=== PATIENT | female | born 1965 | race Two or more races ===

== ENCOUNTER 2016-07-14 02:18 | Emergency (ER) | payer MEDICAID ==
[~2016-07-14] VITALS: Ht 152.4 cm; Wt 61.2 kg
[~2016-07-14 02:18] MED LIST: FIORICET1 EA ORAL
[2016-07-14] MEDS ORDERED: AMOXICILLI250 MG/5 M ORAL (02:27)
[2016-07-14] MEDS ORDERED: PERIDEX 0.12% O15 ML ORO (02:28)
[2016-07-14] MEDS ORDERED: Ketorolac 60mg Inj IM ONE (03:00)
--- NOTE | 2016-07-14 03:23 | Emergency Room Report ---
History of Present Illness General Chief Complaint: Pain Source: Patient Present Illness HPI Patient presents with complaints of left shoulder pain Reports recent major oral surgery And she was concerned that the surgery could potentially have led to her discomfort Denies any fall or trauma Denies any chest pain or shortness of breath Patient has very a specific discomfort localized to the lateral aspect of the left shoulder Pain with any attempts at movement of the shoulder and appears to be very mechanical denies any neck pain Denies any abdominal pain denies any swelling of the arm Please note that the conversation was performed using pen and paper as the patient is not able to verbalize secondary to the recent oral surgery Allergies: Coded Allergies: No Known Allergies (Unverified , 03/17/14) Patient History Past Medical History: see triage record Pertinent Family History: none Now: No Reviewed Nursing Documentation: PMH: Agreed, PSxH: Agreed Review of Systems All Other Systems: negative except mentioned in HPI Physical Exam Vital Signs Date Time Temp Pulse Resp B/P Pulse Ox O2 Delivery O2 Flow Rate FiO2 07/14/16 02:23 89 14 159/85 99 Room Air Sp02 EP Interpretation: reviewed, normal General Appearance: no apparent distress Head: normocephalic, atraumatic Eyes: bilateral eye EOMI, bilateral eye PERRL ENT: other - Patient has teeth clenched, has apparent recent oral surgery Neck: full range of motion, supple Respiratory: lungs clear Cardiovascular #1: regular rate, rhythm, no edema Gastrointestinal: non tender, soft Musculoskeletal: other - She has left shoulder against the left body, slowly moves the upper arm away however with discomfort, sensory is intact, no signs of swelling or edema Neurologic: alert, oriented x3, responsive Skin: normal color Lymphatic: no adenopathy Medical Decision Making Diagnostic Impression: Primary Impression: Shoulder pain, acute ER Course Multiple differentials considered Including but not limited to, radiculopathy, referred pain, cold fracture Patient's x-ray is negative, there is evidence of calcified tendinitis Patient appears to have outpatient consistent pain medication And will continue to followup with that specialty Otherwise neurovascularly intact in a stable for close outpatient followup Other X-Ray Diagnostic Results Other X-Ray Diagnostic Results : EP Interpretation: Yes Findings: no fractures, no dislocation, no soft tissue swelling, other - calcified tendon Number of Views: 3 - left shoulder Last Vital Signs Date Time Temp Pulse Resp B/P Pulse Ox O2 Delivery O2 Flow Rate FiO2 07/14/16 02:23 89 14 159/85 99 Room Air Status: improved Disposition: HOME, SELF-CARE Condition: Improved Additional Instructions: Patient is provided with the discharge instructions notified to follow up with primary doctor in the next 2-3 days otherwise return to the er with any worsening symptoms. Please note that this report is being documented using DRAGON technology. This can lead to erroneous entry secondary to incorrect interpretation by the dictating instrument. LUDIN BALDERRAMA D.O. Jul 14, 2016 03:23
[2016-07-14 03:28] VITALS: BP 113/73
[2016-07-14 04:15] VITALS: BP 113/73
--- NOTE | 2016-07-14 17:11 | Diagnostic Imaging Report ---
Indication: PAIN Technique: 3 views of the left shoulder Comparison: none Findings: No acute fractures. No dislocations. There is calcific tendinosis of the rotator cuff. Impression:No acute process This agrees with the preliminary interpretation provided by the emergency room physician This agrees with the preliminary interpretation provided overnight by [facility].
== END 2016-07-14 04:15 | disposition home or self-care (01) ==
LOC: EMR 03:10
DX: M25.512 Pain in left shoulder (principal)
CPT/HCPCS: 81025; 96372; 99283

== ENCOUNTER 2016-08-22 10:16 | Emergency (ER) | payer MEDICAID ==
[~2016-08-22] VITALS: Ht 152.4 cm; Wt 59.0 kg
[~2016-08-22 10:16] MED LIST changes: +AMOXICILLI250 MG/5 M ORAL; +PERIDEX 0.12% O15 ML ORO
[2016-08-22 10:25] VITALS: BP 115/75
[2016-08-22] MEDS ORDERED: Dicyclomine HCl 10mg/5ml oral soln ORAL ONE (10:30)
[2016-08-22 11:30] VITALS: BP 122/69
[2016-08-22] MEDS ORDERED: metroNIDAZOLE 500mg tab ORAL ONE (11:45)
[2016-08-22] MEDS ORDERED: Ciprofloxacin 500mg tab ORAL ONE (11:45)
[2016-08-22] MEDS ORDERED: CIPROFLOXACIN500 M2 ORAL (12:15)
[2016-08-22] MEDS ORDERED: ZOFRAN4 M3 ORAL (12:15)
[2016-08-22] MEDS ORDERED: BENTYL10 MG ORAL (12:15)
[2016-08-22] MEDS ORDERED: METRONIDAZOLE500 MG ORAL (12:15)
[2016-08-22 12:25] VITALS: BP 122/69
--- NOTE | 2016-08-24 06:55 | Emergency Room Report ---
History of Present Illness General Chief Complaint: Nausea, Vomiting, and Diarrhea Source: Patient Present Illness HPI 50YOF walk-in with nausea/vomiting and multiple episodes of diarrhea since return from trip to [place] where she and daughter swam in black. The black had stream emptying into it. They were otherwise careful with drinking only bottled water, preparing food. Daughter was sick with same symptoms until she "got some shots" and felt better. No history of abd/pelvic surgery or other medical problems Associated with chills but afebrile here No other medical problems. Allergies: Coded Allergies: No Known Allergies (Unverified , 03/17/14) Patient History Past Medical History: none Past Surgical History: none Pertinent Family History: none Social History: Denies: alcohol use, drug use, smoking Last Menstrual Period: na Now: No Immunizations: UTD Reviewed Nursing Documentation: PMH: Agreed, PSxH: Agreed Nursing Documentation-PMH Past Medical History: No History, Except For Review of Systems All Other Systems: negative except mentioned in HPI Physical Exam Vital Signs Date Time Temp Pulse Resp B/P Pulse Ox O2 Delivery O2 Flow Rate FiO2 08/22/16 10:23 99.7 120 18 115/75 97 Room Air Sp02 EP Interpretation: reviewed, abnormal General Appearance: normal inspection, well appearing, no apparent distress, alert, GCS 15, non-toxic Head: normocephalic, atraumatic Eyes: bilateral eye EOMI, bilateral eye PERRL ENT: normal ENT inspection, hearing grossly normal, normal voice Neck: normal inspection, full range of motion, supple, no bony tend Respiratory: normal inspection, lungs clear, normal breath sounds, no respiratory distress, no retraction, no wheezing Cardiovascular #1: regular rate, rhythm, no edema Gastrointestinal: normal inspection, normal bowel sounds, non tender, soft, no guarding, no hernia Genitourinary: no CVA tenderness Musculoskeletal: normal inspection, back normal, normal range of motion, Regulo' s Sign negative Neurologic: normal inspection, alert, oriented x3, responsive, 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, motor strength/tone normal, speech normal Psychiatric: normal inspection, judgement/insight normal, mood/affect normal Skin: normal inspection, normal color, no rash Medical Decision Making Diagnostic Impression: Primary Impression: Diarrhea Qualified Codes: A09 - Infectious gastroenteritis and colitis, unspecified ER Course Diarrhea, nausea after trip to [place] - Initial tachycardia resolved after GI cocktail, Abx - Presumed infectious given swimming in black recently - Abd non-focal on serial exam - Tolerating PO after anti-emetic - Will tx with cipro/flagyl to cover infectious diarrhea and possibly Giardia from black Close PMD followup Tolerated initial Abx PO doses in ED Last Vital Signs Date Time Temp Pulse Resp B/P Pulse Ox O2 Delivery O2 Flow Rate FiO2 08/22/16 12:25 99.7 92 18 122/69 98 Room Air Status: improved Disposition: HOME, SELF-CARE Condition: Improved Scripts Dicyclomine Hcl* (BENTYL*) 10 Mg Capsule 10 MG ORAL BID for 7 Days, #30 CAP Prov: SHERLEY GRIFFIN M.D. 08/22/16 Ondansetron* (ZOFRAN*) 4 Mg Tablet 4 MG ORAL Q8H Y for Nausea & Vomiting for 7 Days, #14 TAB Prov: SHERLEY GRIFFIN M.D. 08/22/16 Metronidazole* (FLAGYL*) 500 Mg Tablet 500 MG ORAL THREE TIMES A DAY for 7 Days, #21 TAB Prov: SHERLEY GRIFFIN M.D. 08/22/16 Ciprofloxacin Hcl* (CIPROFLOXACIN HCL*) 500 Mg Tablet 500 MG ORAL Q12H for 7 Days, #14 TAB 0 Refills Prov: SHERLEY GRIFFIN M.D. 08/22/16 Patient Instructions: Giardiasis Additional Instructions: - Take both antibiotics until finished - Take zofran as needed for nausea - Take bentyl as needed for diarrhea SHERLEY GRIFFIN M.D. Aug 24, 2016 06:55
== END 2016-08-22 12:25 | disposition home or self-care (01) ==
LOC: EMR 10:45
DX: A09 Infectious gastroenteritis and colitis, unspecified (principal); R19.7 Diarrhea, unspecified
CPT/HCPCS: 99284

== ENCOUNTER 2016-11-02 20:54 | Emergency (ER) | payer MEDICAID ==
[~2016-11-02] VITALS: Ht 152.4 cm; Wt 59.0 kg
[~2016-11-02 20:54] MED LIST changes: +BENTYL10 MG ORAL; +CIPROFLOXACIN500 M2 ORAL; +METRONIDAZOLE500 MG ORAL; +ZOFRAN4 M3 ORAL
[2016-11-02 21:12] VITALS: BP 134/75
[2016-11-02] MEDS ORDERED: LET 3ml Soln TOPIC ONE ×2 (21:15)
[2016-11-02] MEDS ORDERED: Fluorescein Strips RIGHT EYE ONE (21:15)
[2016-11-02] MEDS ORDERED: Tetracaine 0.5% Opth Soln ONE (21:23)
[2016-11-02] MEDS ORDERED: Tetracaine 0.5% Opth Soln RIGHT EYE ONE (21:30)
[2016-11-02] MEDS ORDERED: POLYTRIM EYE DR10 M1 OP (21:37)
[2016-11-02] MEDS ORDERED: IBUPROFEN600 MG ORAL (21:37)
--- NOTE | 2016-11-02 21:38 | Emergency Room Report ---
History of Present Illness General Chief Complaint: Eye Problems Source: Patient Present Illness [facility] This is a 50-year-old female with no past medical history. She presents with trauma to the right eye. She actually stuck herself with a small state from her altered plan. This occurred to the right it and occurred this morning. Complaining of pain and foreign body sensation that area. Redness. No other complaint. No loss of vision. Denies any other trauma. Has not take anything for it. Allergies: Coded Allergies: No Known Allergies (Unverified , 03/17/14) Patient History Past Medical History: see triage record, old chart reviewed Past Surgical History: other Pertinent Family History: none Social History: Denies: smoking Now: No Immunizations: other Reviewed Nursing Documentation: PMH: Agreed, PSxH: Agreed Review of Systems Eye: Reports: eye pain, Denies: blurred vision ENT: Denies: ear pain, nose congestion, throat swelling Respiratory: Denies: cough, shortness of breath Cardiovascular: Denies: chest pain, palpitations Gastrointestinal: Denies: abdominal pain, diarrhea, nausea, vomiting Musculoskeletal: Denies: back pain, joint pain Skin: Denies: rash Neurological: Denies: headache, numbness Endocrine: Denies: increased thirst, increased urine Hematologic/Lymphatic: Denies: easy bruising All Other Systems: negative except mentioned in HPI Physical Exam Vital Signs Date Time Temp Pulse Resp B/P (MAP) Pulse Ox O2 Delivery O2 Flow Rate FiO2 11/02/16 21:04 97.9 66 18 134/75 97 Room Air vitals normal Sp02 EP Interpretation: reviewed, normal General Appearance: well appearing, no apparent distress, alert Head: normocephalic, atraumatic Eyes: right eye other - Right eye: Small abrasion to the sclera a next to the cornea. No foreign body. No cornea abrasion. Ejection of the sclera laterally., bilateral eye PERRL, bilateral eye EOMI ENT: hearing grossly normal, normal pharynx Neck: full range of motion, supple, no meningismus Respiratory: chest non-tender, lungs clear, normal breath sounds Cardiovascular #1: regular rate, rhythm, no murmur Gastrointestinal: normal bowel sounds, non tender, no mass, no organomegaly, no bruit, non-distended Musculoskeletal: back normal, gait/station normal, normal range of motion Psychiatric: mood/affect normal Skin: warm/dry Medical Decision Making Diagnostic Impression: Primary Impression: Abrasion of sclera of right eye Qualified Codes: S05.8X1A - Other injuries of right eye and orbit, initial encounter ER Course Present with superficial abrasion to the sclera. No globe rupture. Negative Marquez sign. No cornea abrasion. No foreign body. We'll discharge home. Last Vital Signs Date Time Temp Pulse Resp B/P (MAP) Pulse Ox O2 Delivery O2 Flow Rate FiO2 11/02/16 21:12 97.9 65 18 134/75 97 Room Air Status: improved Disposition: HOME, SELF-CARE Condition: Stable Scripts Ibuprofen* (MOTRIN*) 600 Mg Tablet 600 MG ORAL THREE TIMES A DAY, #30 TAB 0 Refills Prov: MARYANN CARVAJAL M.D. 11/02/16 Polymyxin B Sulf/Trimethoprim (POLYTRIM EYE DROPS) 10 Ml Drops 10 ML OP QID, #10 ML Prov: MARYANN CARVAJAL M.D. 11/02/16 Additional Instructions: Followup with your DrFrancisco in 2-5 days. Return if symptom worsen. MARYANN CARVAJAL M.D. Nov 02, 2016 21:37
[2016-11-02 21:42] VITALS: BP 134/75
== END 2016-11-02 21:42 | disposition home or self-care (01) ==
LOC: EMR 21:19
DX: S05.8X1A Other injuries of right eye and orbit, initial encounter (principal); W22.8XXA Striking against or struck by other objects, initial encounter; Y92.89 Other specified places as the place of occurrence of the external cause
CPT/HCPCS: 99284

== ENCOUNTER 2017-08-21 07:53 | Emergency (ER) | payer MEDICAID ==
[~2017-08-21] VITALS: Ht 152.4 cm; Wt 61.2 kg
[~2017-08-21 07:53] MED LIST changes: +IBUPROFEN600 MG ORAL; +POLYTRIM EYE DR10 M1 OP
[2017-08-21] MEDS ORDERED: Tylenol #3 tab (300mg/30mg) PO ONE (08:15)
[2017-08-21] MEDS ORDERED: Methocarbamol 750mg tab ORAL ONE (08:15)
[2017-08-21] MEDS ORDERED: ROBAXIN-750750 MG PO (08:59)
[2017-08-21] MEDS ORDERED: ACETAMINOPHEN-1 EAC1 ORAL (08:59)
[2017-08-21 09:05] VITALS: BP 147/84
--- NOTE | 2017-08-21 10:11 | Emergency Room Report ---
History of Present Illness General Chief Complaint: Upper Extremity Injury Source: Patient Present Illness HPI 51-year-old female presents ED for evaluation. Patient complaining of right shoulder pain. Started on Monday after she cleaned house all day. Denies falling or injuring her shoulder. Pain is 10 out of 10, throbbing, radiating down the arm. Difficulty raising her arm. Denies chest pain or shortness of breath. No other aggravating relieving factors. Denies any other associated symptoms Allergies: Coded Allergies: SUMATRIPTAN (Verified Allergy, Severe, 08/21/17) hypertension Patient History Past Medical History: none Past Surgical History: none Pertinent Family History: none Social History: Denies: smoking, alcohol use, drug use Last Menstrual Period: last month Now: No Immunizations: UTD Reviewed Nursing Documentation: PMH: Agreed; PSxH: Agreed Nursing Documentation-PMH Past Medical History: No History, Except For Review of Systems All Other Systems: negative except mentioned in HPI Physical Exam Vital Signs Date Time Temp Pulse Resp B/P (MAP) Pulse Ox O2 Delivery O2 Flow Rate FiO2 08/21/17 07:58 97.9 73 18 142/87 97 Room Air 97.9 Sp02 EP Interpretation: reviewed, normal General Appearance: no apparent distress, alert, GCS 15, non-toxic Head: normocephalic Eyes: bilateral eye normal inspection, bilateral eye PERRL ENT: normal ENT inspection Neck: full range of motion, no bony tend, supple/symm/no masses Respiratory: chest non-tender, lungs clear, normal breath sounds, speaking full sentences Cardiovascular #1: regular rate, rhythm, no edema Gastrointestinal: normal inspection Rectal: deferred Genitourinary: no CVA tenderness Musculoskeletal: decreased range of motion, tender - R shoulder Neurologic: alert, oriented x3, responsive, motor strength/tone normal, sensory intact, speech normal Psychiatric: normal inspection Skin: normal inspection Lymphatic: normal inspection Procedures Splinting Splinting : Consent: Verbal Pre-Made Type: sling Pre-Proc Neuro Vasc Exam: normal Post-Proc Neuro Vasc Exam: normal Patient Tolerated: Well Complications: None Medical Decision Making Diagnostic Impression: Primary Impression: Shoulder strain Qualified Codes: S46.911A - Strain of unspecified muscle, fascia and tendon at shoulder and upper arm level, right arm, initial encounter ER Course Hospital Course 51-year-old F presents to ED complaining of R shoulder pain Differential diagnoses include: Fracture, dislocation, sprain, contusion Clinical course Patient placed on stretcher. After initial history and physical, I ordered pain medications and Xrays of R shoulder Xrays prelim read shows no acute fracture/dislocation. placed in sling. Given pain with abduction concern for rotator cuff injury. Recommend close follow-up with orthopedics as outpatient Diagnosis - shoulder strain Stable and discharged to home with prescription for Tylenol #3, Robaxin. apply ice. weight bear as tolerated. Followup with ortho. Return to ED if symptoms recur or worsen Other X-Ray Diagnostic Results Other X-Ray Diagnostic Results : X-Ray ordered: R shoulder # of Views/Limited Vs Complete: 3 View Indication: Pain EP Interpretation: Yes Interpretation: no dislocation, no soft tissue swelling, no fractures Impression: No acute disease Electronically Signed by: Electronically signed by Juan Richardson MD Last Vital Signs Date Time Temp Pulse Resp B/P (MAP) Pulse Ox O2 Delivery O2 Flow Rate FiO2 08/21/17 09:05 98.1 83 20 147/84 98 Room Air 208.2 Status: improved Disposition: HOME, SELF-CARE Condition: Stable Scripts Methocarbamol* (ROBAXIN-750*) 750 Mg Tablet 750 MG PO TID, #21 TAB 0 Refills Prov: Juan Richardson MD 08/21/17 Acetaminophen With Codeine (T#3) (TYLENOL #3 TAB*) Y Tab 1 TAB ORAL Q8H PRN for For Pain, #20 TAB Prov: Juan Richardson MD 08/21/17 Patient Instructions: Shoulder Sprain Juan Richardson MD Aug 21, 2017 10:11
--- NOTE | 2017-08-21 10:49 | Diagnostic Imaging Report ---
Indication: Pain Technique: 3 views of the right shoulder Comparison: none Findings: No acute fractures. No dislocations. Joint spaces are preserved. Impression: Negative
== END 2017-08-21 09:05 | disposition home or self-care (01) ==
LOC: EMR 08:18
DX: S46.911A Strain of unspecified muscle, fascia and tendon at shoulder and upper arm level, right arm, initial encounter (principal); Z88.8 Allergy status to other drugs, medicaments and biological substances; X58.XXXA Exposure to other specified factors, initial encounter; Y93.E9 Activity, other interior property and clothing maintenance; Y92.9 Unspecified place or not applicable
CPT/HCPCS: 99284

== ENCOUNTER 2018-02-18 09:15 | Emergency (ER) | payer MEDICAID ==
[~2018-02-18] VITALS: Ht 152.4 cm; Wt 63.5 kg
[~2018-02-18 09:15] MED LIST changes: +ACETAMINOPHEN-1 EAC1 ORAL; +CEPHALEXIN500 MG ORAL; +HYDROCODON-ACE1 EA15 ORAL; +ROBAXIN-750750 MG PO
[2018-02-18 09:42] VITALS: BP 126/81
--- NOTE | 2018-02-18 09:44 | NUR ---
ED Nurse Note:pt. cut her inner left thumb last night and it still bleeding on arrival to ER, seen by ER MD
--- NOTE | 2018-02-18 10:10 | Emergency Room Report ---
History of Present Illness General Chief Complaint: Laceration Source: Patient, Medical Record Present Illness HPI Patient presents with complaints of bleeding from her laceration on the left thumb Reports that yesterday approximately 4 in the afternoon while emptying a can She lacerated her left thumb on the edge The bleeding took some time to control And look to be doing better however this morning again noted bleeding from the area and presents to the ER Denies any wrist pain denies any other trauma there is discomfort to the thumb itself The lacerated area 4 out of 10 Allergies: Coded Allergies: SUMATRIPTAN (Verified Allergy, Severe, 11/29/17) hypertension Patient History Past Medical History: see triage record Pertinent Family History: none Reviewed Nursing Documentation: PMH: Agreed; PSxH: Agreed Review of Systems All Other Systems: negative except mentioned in HPI Physical Exam Vital Signs Date Time Temp Pulse Resp B/P (MAP) Pulse Ox O2 Delivery O2 Flow Rate FiO2 02/18/18 09:25 97.9 77 22 126/81 96 Room Air Sp02 EP Interpretation: reviewed, normal General Appearance: no apparent distress Head: normocephalic, atraumatic Eyes: bilateral eye PERRL, bilateral eye EOMI ENT: normal pharynx Neck: full range of motion, supple Respiratory: lungs clear Cardiovascular #1: regular rate, rhythm Gastrointestinal: non tender, soft Musculoskeletal: normal inspection - Able to fully flex and extend against resistance on her left thumb Neurologic: alert, oriented x3, responsive Skin: other - Approximately 1 cm secondarily healing laceration involving the palmar aspect of the left thumb no obvious secondary hematomas Lymphatic: no adenopathy Procedures Laceration/Wound Repair Laceration/Wound Repair : Consent: Verbal Wound Location: upper extremity Wound's Depth, Shape: superficial Wound Length (cm): 1 Wound Explored: clean Wound Debrided: minimal Wound Repaired With: Dermabond Patient Tolerated: Well Complications: None Progress The area in question has secondary healing already in process after further cleansing Dermabond is applied for further appropriate coverage. The wound does not fully approximate however it does provide appropriate approximation with Dermabond coverage and patient has close outpatient follow-up Medical Decision Making Diagnostic Impression: Primary Impression: Laceration ER Course The area is cleansed and dressed as above patient tolerated the procedure well Reports that she feels like she is up-to-date with immunizations I will have initial conservative outpatient trial Last Vital Signs Date Time Temp Pulse Resp B/P (MAP) Pulse Ox O2 Delivery O2 Flow Rate FiO2 02/18/18 09:42 97.9 22 126/81 96 Room Air 02/18/18 09:25 77 Status: improved Disposition: HOME, SELF-CARE Condition: Improved Referrals: HERSON ALVARADO,REFERRING (PCP) Additional Instructions: Patient is provided with the discharge instructions notified to follow up with primary doctor in the next 2-3 days otherwise return to the er with any worsening symptoms. Please note that this report is being documented using [employer]fer technology. This can lead to erroneous entry secondary to incorrect interpretation by the dictating instrument. Estelita Johnson DO Feb 18, 2018 10:10
[2018-02-18 10:37] VITALS: BP 126/81
--- NOTE | 2018-02-18 10:38 | NUR ---
ED Nurse Note:dry dressing was applied then pt. received d/c instructions and left ER with steady gait
== END 2018-02-18 10:39 | disposition home or self-care (01) ==
LOC: EMR 09:40
DX: S61.012A Laceration without foreign body of left thumb without damage to nail, initial encounter (principal); Z88.0 Allergy status to penicillin; W26.8XXA Contact with other sharp object(s), not elsewhere classified, initial encounter; Y92.89 Other specified places as the place of occurrence of the external cause
CPT/HCPCS: 99283; Z7502